=== PATIENT | male | born 1955 | race Caucasian/White ===

== ENCOUNTER 2025-05-16 09:32 | Emergency (ER) | payer MEDICARE | END 2025-05-16 11:25 | disposition home or self-care (01) | LOC: JP.ED 09:32 | DX: M25.551 Pain in right hip (principal); S73.191D Other sprain of right hip, subsequent encounter; Z79.82 Long term (current) use of aspirin; Z79.899 Other long term (current) drug therapy; X58.XXXD Exposure to other specified factors, subsequent encounter | CPT/HCPCS: 99283; A9270 ==

== ENCOUNTER 2025-06-14 10:06 | Emergency (ER) | payer MEDICARE ==
[2025-06-14 10:57] LABS: BASOPHILS ABSOLUTE AUTO 0.04 K/uL (0.00-0.10); BASOPHILS PERCENT AUTO 0.6 % (0.1-1.3); EOSINOPHILS ABSOLUTE AUTO 0.17 K/uL (0.00-0.40); EOSINOPHILS PERCENT AUTO 2.7 % (0.0-5.4); IMMATURE GRAN PERCENT AUTO 0.2 % (0.0-0.7); LYMPHOCYTES ABSOLUTE AUTO 1.57 K/uL (0.8-3.3); LYMPHOCYTES PERCENT AUTO 25.3 % (11.4-47.7); MONOCYTES ABSOLUTE AUTO 0.60 K/uL (0.20-0.90); MONOCYTES PERCENT AUTO 9.7 % (3.3-12.6); NEUTROPHILS ABSOLUTE AUTO 3.82 K/uL (1.0-7.6); NEUTROPHILS PERCENT AUTO 61.5 % (40.0-78.1); PLATELET COUNT,PLT 169 K/uL (130-375); RED BLOOD CELL COUNT 4.77 M/uL (4.14-5.76); WHITE BLOOD CELL COUNT,WBC 6.2 K/uL (3.2-11.0)
[2025-06-14 11:00] LABS: IMMATURE GRAN ABSOLUTE AUTO 0.01 K/uL (0.00-0.23)
[2025-06-14 11:23] LABS: BLOOD UREA NITROGEN,BUN 24.0 mg/dL (7-18); CARBON DIOXIDE,CO2 29.0 mmol/L (21-32); CHLORIDE,CL 105.0 mmol/L (100-108); CREATININE 1.1 mg/dL (0.8-1.3); EST CRCL DRUG DOSING (CG) 52.58 mL/min; ESTIMATED GFR 71.0 mL/min (>60); GLUCOSE RANDOM 107.0 mg/dL (74-106); POTASSIUM,K 4.3 mmol/L (3.6-5.2); SODIUM,NA 139.0 mmol/L (140-148)
[2025-06-14 11:27] LABS: INR 1.0; PTT,PARTIAL THROMBOPLSTIN TIME 24.0 sec (21.8-27.3)
[2025-06-14 11:29] LABS: TROPONIN I HIGH SENSITIVITY 2395.2 pg/mL (<=60.3)
[2025-06-14] MEDS: Nitroglycerin 0.4 MG Tab.SL SL PRN (11:45)
== END 2025-06-14 14:15 ==
LOC: JP.ED 10:06
DX: I21.4 Non-ST elevation (NSTEMI) myocardial infarction (principal); I25.10 Atherosclerotic heart disease of native coronary artery without angina pectoris; I10 Essential (primary) hypertension; E78.00 Pure hypercholesterolemia, unspecified; Z79.82 Long term (current) use of aspirin; Z79.899 Other long term (current) drug therapy
CPT/HCPCS: 36415; 71045; 80048; 83735; 84484; 85025; 85379; 85610; 85730; 93005; 93010; 96365; 96366; 99285; A9270; J1644